=== PATIENT | female | born 1945 | race African-American/Black ===

== ENCOUNTER → 2018-07-13 | Outpatient (CLI) | payer MEDICARE ==
[~2018-07-13] MED LIST: ZOLPIDEM 5 MG TABLET. PO ONE
--- NOTE | 2018-07-14 18:20 | SLEEP ---
DATE OF STUDY: 07/13/2018 ATTENDING PHYSICIAN: Dr. Alondra Hoskins. The patient is 73 years old who weighs 230 pounds with a BMI of 39. The patient's [place] score was 5. The patient had a sleep study more than 10 years ago and was positive for ANGEL and has been on CPAP at home. She needs another study to requalify for a new machine. During the night study, the patient spent 457 minutes in bed and slept for 363 minutes with a sleep efficiency of 79%. Sleep latency was 91 minutes with a REM latency of 321 minutes. Overall, sleep architecture showed increased stage 1 sleep, normal stage 2 sleep, normal slow wave and reduced REM sleep. During the initial diagnostic portion of the study, the patient slept for 188 minutes. During that time, there were 46 obstructive apneas, 8 mixed apneas, no central apneas and 82 hypopneas. The patient's apnea hypopnea index was 43 per hour, supine index 40 per hour. REM sleep was not seen during the diagnostic portion of the study. EKG monitoring revealed normal sinus rhythm. Average heart rate was 67 beats per minute, no sustained arrhythmias were observed. Nocturnal oximetry study revealed a mean oxygen saturation of 94% with lowest of 84%. 10% of the time oxygen saturation remained between 80% and 89%. PLMS were seen at index of 13 per hour and none caused EEG arousals. The patient met the criteria for CPAP initiation. Was started at 5 cm water and titrated up to 15 cm water. At the final pressure, the patient slept for 51 minutes. The patient had supine sleep, but no REM sleep observed. The patient's AHI was reduced to 0 per hour and oxygen saturation remained above 94%. The patient used a large size nasal mask. IMPRESSION: 1. Severe sleep apnea hypopnea syndrome with an apnea hypopnea index of 43 per hour. 2. Nocturnal hypoxia secondary to obstructive sleep apnea, but resolved with continuous positive airway pressure. 3. Mild periodic limb movements in sleep, which does not need to be treated. RECOMMENDATIONS: 1. CPAP at 15 cm water completely eliminated the patient's sleep apnea and should be used on a nightly basis. 2. Follow up in 4-6 weeks to assess compliance with CPAP and to document clinical improvement. 3. Weight loss is strongly advised. 4. Avoid [employer] depressants. 5. Caution regarding driving until symptoms of sleep apnea resolve with the use of CPAP. JUAN ANTONIO SALES MD DR: BK/silvestre JOB#: [id number] / [id number] Dr. Alondra Valverde
== END | disposition home or self-care (01) ==
LOC: SLPLAB 18:27
DX: G47.33 Obstructive sleep apnea (adult) (pediatric) (principal); G47.34 Idiopathic sleep related nonobstructive alveolar hypoventilation; E66.09 Other obesity due to excess calories; Z78.0 Asymptomatic menopausal state
CPT/HCPCS: 95810

== ENCOUNTER → 2019-12-03 | Outpatient (CLI) | payer MEDICARE ==
--- NOTE | 2019-12-03 16:50 | RAD ---
EXAM: Carotid Doppler sonogram. HISTORY: Carotid stenosis. TECHNIQUE: [place] scale and color Doppler sonographic evaluation of the neck with spectral waveform analysis was performed and static images are submitted for review. FINDINGS: The peak systolic velocity within the right common carotid artery is 104 cm/sec. The peak systolic velocity within the right internal carotid artery is 92 cm/sec and the end diastolic velocity within the right internal carotid artery is 29 cm/sec. The right ICA/CCA ratio is 1.0. There is mild atherosclerotic plaque within the left carotid bifurcation. The peak systolic velocity within the left common carotid artery is 125 cm/sec. The peak systolic velocity within the left internal carotid artery is 86 cm/sec and the end diastolic velocity within the left internal carotid artery is 25 cm/sec. The left ICA/CCA ratio is 0.8. There is normal antegrade flow within both vertebral arteries. IMPRESSION: No Doppler evidence of hemodynamically significant stenosis. PQRS Compliance Statement - Stenosis calculations for CT, MR and conventional angiography are based upon measurement of the distal ICA diameter in accordance with the NASCET methodology. Stenosis calculations for carotid ultrasound studies are derived from validated velocity criteria which are known to correlate with the NASCET methodology. Electronically signed by: Melissa Swift MD (12/03/2019 4:48 PM) [facility] [place]
== END | disposition home or self-care (01) ==
LOC: US 15:10
PROVIDERS: ATTEND Family Medicine
DX: I65.22 Occlusion and stenosis of left carotid artery (principal)
CPT/HCPCS: 93880